=== PATIENT | male | born 1980 | race Caucasian/White ===

== ENCOUNTER 2023-07-06 17:02 | Inpatient (IN) | payer OTHER ==
--- OUTSIDE RECORDS SUMMARY | 2023-07-06 17:05 | XMS REPORT | Continuity of Care Document ---
:1980 Author Organization [facility] t Address [address] [facility]. [address] [place] [address] Care Team Providers Name Role Phone PCP, PATIENT DOES NOT HAVE A Primary Care Physician Unavaila Monique Jones MD Attending Clinician MONIQUE ZIMMER Attending Clinician Unavailable MONIQUE ZIMMER Admitting Clinician Unavailable Payers Payer Name Policy Type Policy Number Effective Date Expiration Date S ource Problems This patient has no known problems. Allergies, Adverse Reactions, Alerts Allergy Allergy Status Severity Reaction(s) Onset Inactive Treating Comm ents Source Name Type Date Date Clinician Penicill Propensi Active Itching 2022-0 Unive rs ins ty to 7-24 ity of adverse 00:00: [place] reaction 00 Medical s Branch Tetanus Propensi Active Anaphylaxis 2022-0 Un katia And ty to 7-24 ity of Diphther adverse 00:00: [place] . Tox reaction 00 Medical (Pf) s Branch PENICILL Drug Active ITCHING 2022-0 Univers INS Class 7-24 ity of 00:00: [place] 00 Medical Branch TETANUS DRUG Active Anaphylaxis 2022-0 Univ ers AND 7-24 ity of DIPHTHER 00:00: [place] . TOX 00 Medical (PF) Branch NO KNOWN Drug Active Univers ALLERGIE Class ity of [place] [facility] [place] Social History Social Habit Start Date Stop Date Quantity Comments Source Gender identity Universit y [facility] Medical [place] Sexual orientation Univer [facility] Medical [place] Sex Assigned At [birth year] [facility] [place] 00:00:00 00:00:00 Medical Branch Smoking Status Start Date Stop Date Source Tobacco [facility] consumption [facility] Medications Ordered Filled Start Stop Current Ordering Indication Dosage Frequency Signature Comments Components Source Medication Medication Date Date Medication? Clinician (SIG) Name Name HYDROcodone 2022- No 1{tbl} 1 tablet, Univers -acetaminop 06-15 Oral, ity of hen (NORCO 04:00: 03:58 ONCE, 1 [place] as 5) 5-325 mg 00 :00 dose, On Medi beck tablet 1 Wed Branch tablet 06/14/23 at 2300, JOSE levoFLOXaci 2022- No 500mg 500 mg, U nivers n 06-15 Oral, ity of (LEVAQUIN) 03:45: 03:41 ONCE, 1 Dusty as tablet 500 00 :00 dose, On Medic al mg Wed Branch 06/14/23 at 2245, JOSE
Re ason for Anti-Infec tive: Documented Infection< br>Documen everett Infection Site: Urine
D uration of Therapy: Other (see Comments) ketorolac No 30mg 30 mg, Unive rs (TORADOL) 06-15 Slow IV ity of injection 03:00: 02:58 Push, [place] 30 mg 00 :00 ONCE, 1 Medical dose, On Branch 06/14/23 at 2200, Routine tamsulosin Yes [id number] .4mg Take 1 Univers 0.4 mg 24 7-24 capsule by ity of hr capsule 00:00: mouth at Dust[place] as 00 bedtime. Medical Branch levoFLOXaci 0 Yes [id number] 500mg Take 1 Univers n 7-24 tablet by ity of (LEVAQUIN) 00:00: mouth [place] 500 mg 00 every 24 Medical tablet (twenty-fo Branch ur) hours. traMADoL 0 Yes [id number] 50mg Take 1 Univers (ULTRAM) 50 7-24 tablet by ity of mg tablet 00:00: mouth [place] 00 every 6 Medical (six) Branch hours as needed for Pain (scale 7-10). Indication s: acute pain phenazopyri 2022- Yes [id number] 200mg Take 1 Univers dine 200 mg 06-14- tablet by it y of tablet 00:00: 04:59 mouth in [place] 00 :00 the Medical morning Branch and 1 tablet at noon and 1 tablet in the evening. Do all this for 3 days. Vital Signs Vital Name Observation Time Observation Value Comments Source Systolic blood 2023-06-15 03:24:00 140 mm[Hg] Univer sit of pressure [facility] Diastolic blood 2023-06-15 03:24:00 103 mm[Hg] [facility] Heart rate 2023-06-15 03:24:00 73 /min [facility] Respiratory rate 2023-06-15 03:24:00 23 /min [facility] Oxygen saturation in 2023-06-15 03:24:00 98 /min [facility] Arterial blood by [facility] Pulse oximetry Branch Body temperature 2023-06-15 01:18:00 36.72 Riya [facility] Body height 2023-06-15 01:18:00 177.8 cm [facility] Body weight 2023-06-15 01:18:00 77.111 kg [facility] BMI 2023-06-15 01:18:00 24.39 kg/m2 [facility] Procedures Procedure Date / Time Performed Performing Clinician Liu del rosario CT ABDOMEN PELVIS WO 2023-06-15 02:42:[address] [facility] CONTRAST [facility] BASIC METABOLIC PANEL 2023-06-15 02:10:00 Monique Zimmer [facility] (NA, K, CL, CO2, Medical Branch GLUCOSE, BUN, CREATININE, CA) CBC WITH DIFF 2023-06-15 02:10:00 Monique Zimmer [facility] URINALYSIS 2023-06-15 02:10:00 Monique Zimmer [facility] NOTICE OF PRIVACY 2023-06-15 01:05:46 Doctor Unassigned, No Univ [facility] Name Medical Branch CONSENT/REFUSAL FOR 2023-06-15 01:05:17 [facility] Name Medical Branch TREATMENT Encounters Start End Encounter Admission Attending Care Care Encounter Source Date/Time Date/Time Type Type Clinicians Facility Department ID 2023-06-14 2023-06-[address] [facility] [id number] [facility] 20:21:00 23:08:00 [id number] [id number] [place] [id number] Branch 2023-06-14 2023-06-14 Emergency X DREA ZIMMER ERT [id number] [facility] 20:21:00 23:08:00 [facility] Results Test Description Test Time Test Comments Results Result Comments Source BASIC METABOLIC PANEL (NA, K, CL, CO2, GLUCOSE, BUN, 2023-05 02:52:51 CREATININE, CA) Test Item Value Reference Range Interpretation Comme nts NA (test code = 5442428357) 144 mmol/L 135-145 K (test code = 5111852184) 3.7 mmol/L 3.5-5.0 CL (test code = 2226463096) 109 mmol/L 98-108 H CO2 TOTAL (test code = 3876173192) 21 mmol/L 23-31 L AGAP (test code = 3280869495) 14 2-16 BUN (test code = 8985517633) 12 mg/dL 7-23 GLUCOSE (test code = 3253517963) 112 mg/dL 70-110 H CREATININE (test code = 1.08 mg/dL 0.60-1.25 1252080452) CALCIUM (test code = 1325033025) 8.8 mg/dL 8.6-10.6 eGFR (test code = 9549532220) 75.0 mL/min/1.73m2 AYUSH (test code = AYUSH) Association of Glomerular Filtration Rate (GFR) and Staging of Kidney Disease* + +-------- + ------+| GFR (mL/min/1.73 m2) ?| With Kidney Damage ?| ?Without Kidney Damage+ +-- + +| ?>90 ?| ?Stage one ?| ? Normal ?+ +------- + -------+| ?60-89 ?| ?Stage two ?| ? Decreased GFR ? + +-------- + ------+| ?30-59 ?| ?Stage three ?| ? Stage three ? + +-------- + ------+| ?15-29 ?| ?Stage four ? | ? Stage four ?+ +------- + -------+| ?<15 (or dialysis) ? ?| ?Stage five ? | ? Stage five ?+ +------- + -------+ *Each stage assumes the associated GFR level has been in effect for at least three months. ?Stages 1 to 5, with or without kidney disease, indicate chronic kidney disease. Notes: Determination of stages one and two (with eGFR >59mL/min/1.73 m2) requires estimation of kidney damage for at least three months as defined by structural or functional abnormalities of the kidney, manifested by either:Pathological abnormalities or Markers of kidney damage (including abnormalities in the composition of the blood or urine or abnormalities in imaging tests). Lab Interpretation (test code = Abnormal 99399-1) [facility] WITH [id number] 02:41:34 Test Item Value Reference Range Interpretation Comments WBC (test code = 13.38 See_Comment H [Automated 2542-2) message] The sy stem which generated this result transmitted reference range : 4.20 - 10.70 10*3/?L. The reference range was not used to interpret this result as normal/abnormal . RBC (test code = 4.83 See_Comment [Automated 842-8) message] The sy stem which generated this result transmitted reference range : 4.26 - 5.52 10*6/?L. The reference range was not used to interpret this result as normal/abnormal . HGB (test code = 14.9 g/dL 12.2-16.4 718-7) HCT (test code = 41.6 % 38.4-49.3 4544-3) MCV (test code = 86.1 fL 81.7-95.6 787-2) MCH (test code = 30.8 pg 26.1-32.7 785-6) MCHC (test code = 35.8 g/dL 31.2-35.0 H 786-4) RDW-SD (test code = 40.7 fL 38.5-51.6 76890-4) RDW-CV (test code = 13.1 % 12.1-15.4 788-0) PLT (test code = 208 See_Comment [Automated 996-3) message] The sy stem which generated this result transmitted reference range : 150 - 328 10*3/ ?L. The reference r dayan was not used to interpret this result as normal/abnormal . MPV (test code = 11.4 fL 9.8-13.0 09943-3) NRBC/100 WBC (test 0.0 See_Comment [Automat ed code = 1679183568) message] The system which generated this result transmitted reference range : 0.0 - 10.0 /100 WBCs. The refer ence range was not u sed to interpret th is result as normal/abnormal . NRBC x10^3 (test code See_Comment [Auto mated = 4090879192) message] The s ystem which generated this result transmitted reference range : 10*3/?L. The reference range was not used to interpret this result as normal/abnormal . GRAN MAT (NEUT) % 64.2 % (test code = 770-8) IMM GRAN % (test code 0.20 % = 3820762895) LYMPH % (test code = 23.5 % 736-9) MONO % (test code = 7.4 % 5905-5) EOS % (test code = 3.7 % 713-8) BASO % (test code = 1.0 % 706-2) GRAN MAT x10^3(ANC) 8.60 10*3/uL 1.99-6.95 H (test code = 2715118714) IMM GRAN x10^3 (test 0.03 10*3/uL 0.00-0.06 code = 7491882461) LYMPH x10^3 (test code 3.14 10*3/uL 1.09-3.23 = 731-0) MONO x10^3 (test code 0.99 10*3/uL 0.36-1.02 = 742-7) EOS x10^3 (test code = 0.49 10*3/uL 0.06-0.53 711-2) BASO x10^3 (test code 0.13 10*3/uL 0.01-0.09 H = 704-7) Lab Interpretation Abnormal (test code = 05127-2) [facility] Notes Date/Time Note Provider Source 2023-06-14 Formatting of this note might be differe nt from the original. Davina Gannon RN [facility] 23:07:04-00:00 Pt given printed and verbal discharge instructions regarding acute cystitis without hematuria, right flank pain, enlarged prostate, elevated blood pressure reading without diagnosis of hypertension, encouraged hydration, 4 Prescriptions provided Discussed antibiotic therapy and to take until all completed unless adverse reaction occurs - if occurs, discontinue medication and follow up with pcp/seek medical attention Discussed tramadol side affe cts and to avoid driving/operating machinery/or engaging in activities requiring alertness while taking. Pt verbalized understanding of instructions, pt awake alert oriented, resp reg unlabored, skin w/d, color appropriate for race, moves all ext well,pt encouraged to follow up with pcp and urologist. Advised to seek medical attention for new/prolon ged/worsening of symptoms, Symptoms improved. No adverse reaction to meds given in ER noted up on discharge PIV d'cd, dressing to site, catheter in tact. Awake, alert oriented, resp reg unlabored, skin w/d, pt leaving amb with steady gait, in no apparent distress, Electronically signed by Davina Gannon RN a t 06/14/2023 11:08 PM CDT 2023-06-14 [facility] 20:17:19-00:00 C/O RLQ pain that radiates t o the right flank and, right mid back X3. Pt states that he has been have more difficulty urinating Electronically signed by Serena Sagastume RN at 0 06/14/2023 8:18 PM CDT"
[2023-07-06 18:05] LABS: Absolute Lymphocytes (CBC) 3.1 K/uL (0.7-4.9); Hematocrit 43.4 % (39.6-49.0); Lymphocytes % 23.9 % (15.3-44.8); MCV 89.8 fL (80-100); MPV 9.3 fL (7.6-11.3); Platelets 206 thou/uL (152-406); RBC Red Blood Cell Count 4.83 M/uL (4.33-5.43)
[2023-07-06 18:15] LABS: Potassium 3.1 mEq/L (3.5-5.1)
[2023-07-06 18:26] LABS: Troponin High Sensitivity 69.9 pg/mL (<58.9)
--- NOTE | 2023-07-06 19:28 | ER ---
Nurse's Notes [facility] [place] Name: Jose Vance Jr Age: 42 yrs Sex: Male : 1980 Arrival Date: 07/06/2023 Time: 17:02 Bed 20 Private MD: Diagnosis: Hypertensive emergency;Chest pain, unspecified-elevated troponin Presentation: 07/06 17:08 Chief complaint: Patient states: he was sent by the dentist for high blood pressure, ap3 and the dentist was unable to due his procedure due to the patients blood pressure. Coronavirus screen: At this time, the client does not indicate any symptoms associated with coronavirus-19. Ebola Screen: No symptoms or risks identified at this time. Initial Sepsis Screen: Does the patient meet any 2 criteria? No. Patient's initial sepsis screen is negative. Does the patient have a suspected source of infection? No. Patient's initial sepsis screen is negative. Risk Assessment: Do you want to hurt yourself or someone else? Patient reports no desire to harm self or others. Onset of symptoms was July 06, 2023. 17:08 Method Of Arrival: Ambulatory ap3 17:08 Acuity: HIEU 2 ap3 Triage Assessment: 17:11 General: Appears in no apparent distress. Behavior is calm, cooperative, appropriate ap3 for age. Pain: Complains of pain in mouth. Neuro: Level of Consciousness is awake, alert, obeys commands, Oriented to person, place, time, situation. Cardiovascular: Patient's skin is warm and dry. Respiratory: Airway is patent Respiratory effort is even, unlabored, Respiratory pattern is regular, symmetrical. Historical: - Allergies: 17:10 PENICILLINS; ap3 - Home Meds: 17:10 None [Active]; ap3 - PMHx: 17:10 None; ap3 - Immunization history:: Client reports having NOT received the Covid vaccine. - Social history:: Smoking status: Patient reports the use of cigarette tobacco products, denies chronic smoking, but will smoke occasionally. Screenin:11 [facility] ED Fall Risk Assessment (Adult) History of falling in the last 3 months, ap3 including since admission No falls in past 3 months (0 pts). Abuse screen: Denies threats or abuse. Nutritional screening: No deficits noted. Tuberculosis screening: No symptoms or risk factors identified. Assessment: 17:15 General: Appears comfortable, Behavior is calm, cooperative. Pain: Complains of pain in aa5 mouth. Neuro: Level of Consciousness is awake, alert, obeys commands, Oriented to person, place, time, situation, Denies dizziness, headache. Cardiovascular: Heart tones S1 S2 present Rhythm is regular. Respiratory: Airway is patent Respiratory effort is even, unlabored, Respiratory pattern is regular, symmetrical. GI: Patient currently denies nausea, vomiting. : No signs and/or symptoms were reported regarding the genitourinary system. EENT: Reports toothache, pt states "I was at the dentist to get a crown done but they weren't able to do it because my blood pressure was high, it was around 179 (systolic) and it just kept getting higher and higher". . Derm: Skin is pink, warm \\T\\ dry. Musculoskeletal: Range of motion: intact in all extremities. 17:40 Reassessment: Patient is alert, oriented x 3, equal unlabored respirations, skin aa5 warm/dry/pink. 18:21 Reassessment: Patient is alert, oriented x 3, equal unlabored respirations, skin aa5 warm/dry/pink. 19:32 General: Appears in no apparent distress. Behavior is cooperative. Cardiovascular: kl Rhythm is sinus rhythm. Respiratory: No deficits noted. GI: No deficits noted. No signs and/or symptoms were reported involving the gastrointestinal system. : No deficits noted. No signs and/or symptoms were reported regarding the genitourinary system. 07/07 17:25 Reassessment: attempted to call report to 2nd floor. no answer at this time. kc6 17:36 Reassessment: attempted to call report to 2nd floor. nurse lb is putting in a pathak kc6 catheter and will call me back in 10min. Vital Signs: 07/06 17:08 BP 204 / 115; Pulse 62; Resp 17; Temp 97.6; Pulse Ox 100% ; Weight 81.65 kg; Height 5 ap3 ft. 10 in. ; 17:52 BP 166 / 119; Pulse 72; Resp 18 S; Pulse Ox 100% on R/A; Pain 0/10; aa5 18:21 BP 157 / 114; Pulse 64; Resp 16 S; Pulse Ox 100% on R/A; aa5 19:33 BP 180 / 130; Pulse 61; Resp 16; Pulse Ox 98% on R/A; kl 17:08 Body Mass Index 25.83 (81.65 kg, 177.8 cm) ap3 17:52 Pain Scale: Adult aa5 ED Course: 17:03 Patient arrived in ED. kj1 17:05 [facility] kb 17:05 Rui Anderson DO is Attending Physician. kb 17:10 Triage completed. ap3 17:11 Arm band placed on right wrist. ap3 17:15 Patient has correct armband on for positive identification. Bed in low position. Call aa5 light in reach. Side rails up X 1. Pulse ox on. NIBP on. 17:36 Sandra Kamara RN is Primary Nurse. aa5 17:40 Initial lab(s) drawn, by me, sent to lab. Inserted saline lock: 20 gauge in right aa5 forearm, using aseptic technique. Blood collected. 18:05 No provider procedures requiring assistance completed. aa5 19:09 Report given to THOMAS Wang. aa5 19:26 Rui Anderson DO is Hospitalizing Provider. kb 19:27 Mark Paige MD is Hospitalizing Provider. kb 19:31 Troponin High Sensitivity Sent. kl 19:36 BNP Sent. kl 23:19 Patient admitted, IV remains in place. kl Administered Medications: 19:26 Drug: Norvasc PO 5 mg Route: PO; 07/07 05:32 Follow up: Response: No adverse reaction jw7 07/06 19:31 Drug: hydrALAZINE IVP 10 mg Route: IVP; Site: right antecubital; 07/07 05:32 Follow up: Response: No adverse reaction jw7 07/06 19:59 Drug: Potassium Chloride PO 40 mEq Route: PO; jw7 21:13 Follow up: Response: No adverse reaction jw7 20:06 Drug: Acetaminophen PO 1000 mg Route: PO; jw7 21:13 Follow up: Response: No adverse reaction; No change in condition jw7 20:06 CANCELLED (Duplicate Order): Acetaminophen PO 1000 mg PO once jw7 Medication: 23:19 VIS not applicable for this client. Outcome: 19:27 Decision to Hospitalize by Provider. kb 20:45 Admitted to ER Hold. Please see [facility] for further documentation. 20:45 Condition: stable 20:45 Discharge instructions given to patient, family, Instructed on the need for admit, Demonstrated understanding of instructions. 07/07 18:27 Patient left the ED. kc6 Signatures: Joana Winters FNP-C FNP-aDvina Foss RN Sandra Gray RN RN aa5 Jana Novak RN RN ap3 Juana Winters Jodi, RN RN jw7 Ebony Goetz RN RN kc6 Corrections: (The following items were deleted from the chart) 07/06 18:10 17:15 Neuro: Level of Consciousness is awake, alert, obeys commands, Oriented to aa5 person, place, time, situation, aa5
--- NOTE | 2023-07-06 19:28 | EDPHYS ---
Physician Documentation [facility] Name: Jose Vance Jr Age: 42 yrs Sex: Male : 1980 Arrival Date: 07/06/2023 Time: 17:02 Bed 20 Private MD: ED Physician Rui Anderson HPI: 07/06 21:16 This 42 yrs old Male presents to ER via Ambulatory with complaints of High Blood kb Pressure. 21:16 The patient has elevated blood pressure and discovered this at a physician's office, kb and sent to the emergency department for evaluation. Onset: The symptoms/episode began/occurred just prior to arrival. Associated signs and symptoms: The patient has no apparent associated signs or symptoms. The patient has not experienced similar symptoms in the past. The patient has not recently seen a physician. Pt reports he was at the dentist for a procedure and they said his blood pressure was too high so he needed to come here for evaluation. Denies history of hypertension. Denies headache, dizziness, chest pain. Historical: - Allergies: 17:10 PENICILLINS; ap3 - Home Meds: 17:10 None [Active]; ap3 - PMHx: 17:10 None; ap3 - Immunization history:: Client reports having NOT received the Covid vaccine. - Social history:: Smoking status: Patient reports the use of cigarette tobacco products, denies chronic smoking, but will smoke occasionally. ROS: 21:14 Constitutional: Negative for fever, chills, and weight loss. kb 21:14 All other systems are negative. Exam: 21:14 Constitutional: This is a well developed, well nourished patient who is awake, alert, kb and in no acute distress. Head/Face: Normocephalic, atraumatic. ENT: Moist Mucous membranes Cardiovascular: Regular rate and rhythm with a normal S1 and S2. No gallops, murmurs, or rubs. No pulse deficits. Respiratory: Respirations even and unlabored. No increased work of breathing. Talking in full sentences Abdomen/GI: Soft, non-tender. No distention Skin: Warm, dry with normal turgor. Normal color. MS/ Extremity: Pulses equal, no cyanosis. Neurovascular intact. Full, normal range of motion. Neuro: Awake and alert, GCS 15, oriented to person, place, time, and situation. Moves all extremities. Normal gait. Vital Signs: 17:08 BP 204 / 115; Pulse 62; Resp 17; Temp 97.6; Pulse Ox 100% ; Weight 81.65 kg; Height 5 ap3 ft. 10 in. ; 17:52 BP 166 / 119; Pulse 72; Resp 18 S; Pulse Ox 100% on R/A; Pain 0/10; aa5 18:21 BP 157 / 114; Pulse 64; Resp 16 S; Pulse Ox 100% on R/A; aa5 19:33 BP 180 / 130; Pulse 61; Resp 16; Pulse Ox 98% on R/A; kl 17:08 Body Mass Index 25.83 (81.65 kg, 177.8 cm) ap3 17:52 Pain Scale: Adult aa5 MDM: 17:05 Patient medically screened. kb 18:58 Data reviewed: vital signs, nurses notes. Consideration of Admission/Observation kb Escalation of care including admission/observation considered. admission considered for elevated troponin. Pt does not want to be admitted. Pt educated on risks and states he has no chest pain and feels fine so he wants to go home. . 19:20 ED course: Pt now reports he did have chest pressure earlier today, but thought it was kb stress. Agrees to admission now. 21:14 Differential diagnosis: hypertensive crisis, CVA, intracerebral hemorrhage, OR, kb abnormal EKG. Management of patient was discussed with the following: Hospitalist: tonja Vital accepts pt for admission. Counseling: I had a detailed discussion with the patient and/or guardian regarding: the historical points, exam findings, and any diagnostic results supporting the discharge/admit diagnosis, lab results, radiology results, the need for further work-up and treatment in the hospital. 07/06 17:14 Order name: CBC with Diff; Complete Time: 18:17 kb 07/06 17:14 Order name: Basic Metabolic Panel; Complete Time: 18:29 kb 07/06 17:14 Order name: Troponin High Sensitivity; Complete Time: 18:29 kb 07/06 18:59 Order name: Troponin High Sensitivity; Complete Time: 20:08 kb 07/06 19:26 Order name: BNP; Complete Time: 19:59 la1 07/07 00:29 Order name: Troponin High Sensitivity; Complete Time: 01:02 EDMS 07/07 05:22 Order name: CBC with Automated Diff; Complete Time: 15:58 EDMS 07/07 05:40 Order name: Basic Metabolic Panel; Complete Time: 15:58 EDMS 07/07 05:40 Order name: Troponin High Sensitivity; Complete Time: 15:58 EDMS 07/07 05:40 Order name: Lipid Profile; Complete Time: 15:58 EDMS 16 05:40 Order name: T4 Free; Complete Time: 15:58 EDMS 16 05:40 Order name: Thyroid Stimulating Hormone; Complete Time: 15:58 EDMS 07/06 19:26 Order name: Chest Single View XRAY la1 07/06 21:31 Order name: RAD; Complete Time: 21:32 EDMS 07/07 07:48 Order name: CT; Complete Time: 15:58 EDMS 07/06 17:14 Order name: EKG; Complete Time: 17:15 kb 07/06 17:14 Order name: EKG - Nurse/Tech; Complete Time: 17:52 kb Administered Medications: 19:26 Drug: Norvasc PO 5 mg Route: PO; 07/07 05:32 Follow up: Response: No adverse reaction jw7 07/06 19:31 Drug: hydrALAZINE IVP 10 mg Route: IVP; Site: right antecubital; 07/07 05:32 Follow up: Response: No adverse reaction jw7 07/06 19:59 Drug: Potassium Chloride PO 40 mEq Route: PO; jw7 21:13 Follow up: Response: No adverse reaction jw7 20:06 Drug: Acetaminophen PO 1000 mg Route: PO; jw7 21:13 Follow up: Response: No adverse reaction; No change in condition jw7 20:06 CANCELLED (Duplicate Order): Acetaminophen PO 1000 mg PO once jw7 Disposition: 20:46 Co-signature as Attending Physician, Rui RUSHING was immediately available on-site ms3 in the Emergency Department for consultation in the care of the patient. Disposition Summary: 07/06/23 19:27 Hospitalization Ordered Hospitalization Status: Observation kb Provider: Mark Paige Condition: Stable kb Problem: new kb Symptoms: are unchanged kb Bed/Room Type: Standard kb Location: Telemetry/MedSurg (observation)(07/07/23 17:16) bd Room Assignment: 228(07/07/23 17:16) bd Diagnosis - Hypertensive emergency kb - Chest pain, unspecified - elevated troponin kb Forms: - Medication Reconciliation Form kb - SBAR form kb - Leadership Thank You Letter kb Signatures: Dispatcher [employer] EDJoana Grayson, HOME STEREO EQUIPMENT INSTALLER-C HOME STEREO EQUIPMENT INSTALLER-Ckb Abena Barth Kimberly, RN RN Amanuel Royal FNP-C HOME STEREO EQUIPMENT INSTALLER-Nelli1 Jana Novak RN RN ap3 Tami Lindsay RN THOMAS eb1 Rui Anderson DO DO ms3 Nicole Pérez, RN RN jw7 Corrections: (The following items were deleted from the chart) 20:06 20:03 Acetaminophen PO 1000 mg PO once ordered. joan jw7 21:22 21:16 Pt reports he was at the dentist for a procedure and they said his blood pressure kb was too high so he needed to come here for evaluation. Denies history of hypertension. kb 22:21 19:27 Telemetry/MedSurg (observation) kb eb1 22:21 19:27 kb eb1 07/07 17:16 07/06 22:21 [facility] ER HOLD eb1 bd 07/07 17:16 08 22:21 ERHOLD- eb1 bd
[2023-07-06] MEDS ORDERED: AMLODIPINE 5 MG TAB ONE (19:33)
[2023-07-06] MEDS ORDERED: HYDRALAZINE HCL 20 MG/ML VIAL ONE (19:38)
[2023-07-06] MEDS ORDERED: POTASSIUM CL SA 10 MEQ TAB PO ONE (20:07)
[2023-07-06] MEDS ORDERED: ACETAMINOPHEN 500 MG TAB ONE (20:14)
--- NOTE | 2023-07-06 20:16 | P.HP ---
Certification for Inpatient Patient admitted to: Inpatient With expected LOS: >2 Midnights Patient will require the following post-hospital care: None Practitioner: I am a practitioner with admitting privileges, knowledge of patient current condition, hospital course, and medical plan of care. Services: Services provided to patient in accordance with Admission requirements found in Title 42 Section 412.3 of the Code of Federal Regulations Patient History Date of Service: 07/06/23 Reason for admission: Hypertensive emergency, NSTEMI History of Present Illness: Otherwise healthy 42-year-old male went to his dentist today for dental pain and they were making plans for a root canal, they noticed his blood pressure was markedly elevated and for that reason he was referred to the emergency department. His blood pressures have been as high as 204/115. He is not sure when the last time he checked his blood pressure was prior to this. His labs were significant for high sensitive troponin 69.9 potassium 3.1 chest x-ray negative for acute findings EKG without STEMI criteria. He was given aspirin, potassium ED. ED provider wishes to admit for hypertensive emergency. I - Past Medical/Surgical History -: none -: none Psychosocial/ Personal History: Patient lives at home with family - Family History Family History: Reviewed- Non-Contributory - Social History Smoking Status: Current every day smoker Alcohol use: No CD- Drugs: No Caffeine use: Yes Place of Residence: Home Review of Systems Unremarkable Physical Examination - Physical Exam General: Alert, In no apparent distress, Oriented x3 HEENT: Atraumatic, PERRLA, Mucous membr. moist/pink, EOMI, Sclerae nonicteric Neck: Supple, 2+ carotid pulse no bruit, No LAD, Without JVD or thyroid abnormality Respiratory: Clear to auscultation bilaterally, Normal air movement Cardiovascular: Regular rate/rhythm, Normal S1 S2 Gastrointestinal: Normal bowel sounds, No tenderness Musculoskeletal: No tenderness Integumentary: No rashes Neurological: Normal gait, Normal speech, Normal strength at 5/5 x4 extr, Normal tone, Normal affect Lymphatics: No axilla or inguinal lymphadenopathy - Studies Laboratory Data (last 24 hrs) 07/06/23 07/06/23 17:44 17:44 WBC 13.00 H Hgb 14.3 Hct 43.4 Plt Count 206 Sodium 140 Potassium 3.1 L BUN 13 Creatinine 1.01 Glucose 102 Assessment and Plan - Plan Assessment: Hypertensive emergency, NSTEMI Hypokalemia Plan: Hypertensive emergency, NSTEMI Trend troponin, monitor on telemetry, obtain echocardiogram, initiate antihypertensive therapy, will start with lisinopril. Denies chest pain. EKG without STEMI criteria. Hypokalemia Replaced in ED, protocol in place. DVT PPX:lovenox Code status:Full Discharge Plan: Home Plan to discharge in: 48 Hours - Advance Directives Does patient have a Living Will: No Does patient have a Durable POA for Healthcare: No - Code Status/Comfort Care Code Status Assessed: Yes (Full code) Critical Care: No Time Spent Managing Pts Care (In Minutes): 55
--- NOTE | 2023-07-06 21:31 | RAD REPORT ---
EXAM DESCRIPTION: Nessa Single View07/06/2023 8:11 pm CLINICAL HISTORY: CHEST PAIN COMPARISON: No comparisons TECHNIQUE: Portable AP view of the chest. FINDINGS: The lungs are clear. No pneumothorax or effusion. The cardiomediastinal contours are unrem arkable. IMPRESSION: No acute cardiopulmonary process.
[2023-07-06 21:45] VITALS: O2SAT 100; BMI 25.8
[2023-07-06] MEDS ORDERED: MORPHINE 2 MG/ML SYR IV ONE (22:39)
[2023-07-06] MEDS ORDERED: MORPHINE 2 MG/ML SYR ONE (22:55)
[2023-07-07] MEDS: ACETAMINOPHEN 500 MG TAB PO PRN ×2 (01:51→19:51)
[2023-07-07] MEDS: ONDANSETRON 4 MG/2 ML VIAL IV PRN ×2 (01:52→08:36)
[2023-07-07] MEDS ORDERED: ONDANSETRON 4 MG/2 ML VIAL ONE ×2 (01:53→08:37)
[2023-07-07] MEDS ORDERED: ACETAMINOPHEN 500 MG TAB ONE (01:53)
[2023-07-07] MEDS: HYDROCODONE/APAP 7.5/325 MG TAB PO PRN ×4 (03:27→23:14)
[2023-07-07] MEDS ORDERED: HYDROCODONE/APAP 7.5/325 MG TAB ONE ×3 (03:35→15:58)
[2023-07-07] MEDS: HYDRALAZINE HCL 20 MG/ML VIAL IV PRN ×2 (04:17→09:45)
[2023-07-07] MEDS ORDERED: HYDRALAZINE HCL 20 MG/ML VIAL ONE ×2 (04:19→08:37)
[2023-07-07 05:13] LABS: Absolute Lymphocytes (CBC) 3.1 K/uL (0.7-4.9); Hematocrit 40.5 % (39.6-49.0); Lymphocytes % 30.7 % (15.3-44.8); MCV 89.8 fL (80-100); MPV 9.3 fL (7.6-11.3); Platelets 210 thou/uL (152-406); RBC Red Blood Cell Count 4.51 M/uL (4.33-5.43)
[2023-07-07 05:34] LABS: Potassium 3.4 mEq/L (3.5-5.1); Thyroid Stimulating Hormone 2.4 uIU/mL (0.358-3.740)
[2023-07-07 05:39] LABS: Troponin High Sensitivity 79.3 pg/mL (<58.9)
[2023-07-07] MEDS ORDERED: KETOROLAC 30 MG/ML INJ IV ONE ×2 (06:26→21:02)
[2023-07-07] MEDS ORDERED: KETOROLAC 30 MG/ML INJ ONE (06:38)
--- NOTE | 2023-07-07 07:47 | RAD REPORT ---
EXAM DESCRIPTION: CT - Head Brain Wo Cont - 07/07/2023 7:01 am CLINICAL HISTORY: headache COMPARISON: No comparisons TECHNIQUE: Noncontrast head CT images were obtained without IV contrast. Multiplanar reformats were generated and reviewed. All CT scans are performed using dose optimization technique as appropriate and may include automated exposure control or mA/KV adjustment according to patient size. FINDINGS: No intracranial hemorrhage, mass, or edema. Midline structures are unremarkable. Normal ventricular caliber for age. Calle-white matter differentiation is preserved, without evidence of acute infarct. No abnormal extra- axial fluid collections. Mastoid air cells and visualized portions of the paranasal sinuses are clear. No acute bony findings. IMPRESSION: No evidence of an acute intracranial process.
[2023-07-07] MEDS ORDERED: ASPIRIN EC 81 MG TAB PO ONE (08:37)
[2023-07-07] MEDS ORDERED: ENOXAPARIN 40 MG/0.4 ML SQ ONE (08:37)
[2023-07-07] MEDS ORDERED: lisinopriL 10 MG TAB ONE (08:37)
[2023-07-07] MEDS ORDERED: ASPIRIN EC 81 MG TAB PO SCH (09:00)
[2023-07-07] MEDS ORDERED: ENOXAPARIN 40 MG/0.4 ML SQ SCH (09:00)
[2023-07-07] MEDS ORDERED: lisinopriL 10 MG TAB PO SCH (09:00)
[2023-07-07] MEDS ORDERED: MORPHINE 2 MG/ML SYR IV ONE (11:20)
[2023-07-07] MEDS ORDERED: MORPHINE 2 MG/ML SYR ONE (11:43)
--- NOTE | 2023-07-07 15:29 | P.PN ---
Subjective Date of Service: 07/07/23 Chief Complaint: Hypertensive emergency, NSTEMI No acute events overnight. He denies any prior medical history. He states that he has not checked his blood pressure before, so he does not know if he has a history of hypertension. Currently, he is reporting generalized tension headache s. He denies any chest pain, palpitations, or shortness of breath. Review of Systems 10-point ROS is otherwise unremarkable Neurological: Other (headaches) Physical Examination - Vital Signs Temperature: 97.7 F Blood Pressure: 133/94 Pulse: 73 Respirations: 14 Pulse Ox (%): 99 - Physical Exam General: Alert, In no apparent distress, Oriented x3 HEENT: Atraumatic, Mucous membr. moist/pink, Sclerae nonicteric Respiratory: Clear to auscultation bilaterally, Normal air movement Cardiovascular: No edema, Regular rate/rhythm, Normal S1 S2, No gallops, No rubs, No murmurs Gastrointestinal: Normal bowel sounds, Soft and benign, Non-distended, No tenderness, No rebound, No guarding Musculoskeletal: No clubbing Integumentary: No rashes Neurological: Normal speech, Normal affect - Studies Laboratory Data (last 24 hrs) 07/06/23 07/06/23 17:44 17:44 WBC 13.00 H Hgb 14.3 Hct 43.4 Plt Count 206 Sodium 140 Potassium 3.1 L BUN 13 Creatinine 1.01 Glucose 102 Assessment And Plan - Plan # Hypertensive Emergency with suspected Demand Ischemia (Type II Non-ST Segment Elevation Myocardial Infarction) Blood pressure was 204/115. He reports a headache; however, he denies any chest pain, palpitations, or shortness of breath. - Evaluation thus far: - EKG without STEMI criteria - Serial troponin: 69.9 -> 67.0 -> 75.9 -> 79.3 - Chest x-ray = "no acute cardiopulmonary process." - CT head = "no evidence of an acute intracranial process." - Ordered transthoracic echocardiogram - Management plan: - Consulted Cardiology - recommendations appreciated - Goal to reduce blood pressure ~20 % over the next 24 hours - Started lisinopril - PRN hydralazine for SBP > 170 mmHg Mark Paige M.D.
--- NOTE | 2023-07-07 18:28 | EKG ---
Test Date: 2023-07-06 Test Time: 17:47:43 [employer] Dis[employer] Analyst: DAVID MEASUREMENT RESULTS: Intervals: Rate: 63 UT: 138 QRSD: 86 QT: 434 QTc: 444 [place]: P: 63 UT: 138 QRS: 58 T: 29 INTERPRETIVE STATEMENTS: Normal sinus rhythm Minimal voltage criteria for LVH, may be normal variant Borderline ECG No previous ECG available for comparison Electronically Signed On 07-07-23 18:25:36 CDT by Erick Brice
[2023-07-08 02:55] LABS: Absolute Lymphocytes (CBC) 3.3 K/uL (0.7-4.9); Lymphocytes % 29.2 % (15.3-44.8); MCV 90.3 fL (80-100); MPV 9.9 fL (7.6-11.3); Platelets 208 thou/uL (152-406); RBC Red Blood Cell Count 4.65 M/uL (4.33-5.43)
[2023-07-08 03:10] LABS: Potassium 4.1 mEq/L (3.5-5.1)
[2023-07-08] MEDS: HYDROCODONE/APAP 7.5/325 MG TAB PO PRN (05:17)
--- NOTE | 2023-07-08 07:03 | ECHO ---
HEIGHT: 5 ft 10 in WEIGHT: 179 lb 14.355 oz DATE OF STUDY: 07/07/[address]: Amanuel Toledo NP 2-DIMENSIONAL: YES M.MODE: YES DOPPLER: YES COLOR FLOW: YES TDS: PORTABLE: YES DEFINITY: BUBBLE STUDY: DIAGNOSIS: ELEVATED TROPONIN CARDIAC HISTORY: CATHERIZATION: NO SURGERY: NO PROSTHETIC VALVE: NO PACEMAKER: NO MEASUREMENTS (cm) DIASTOLIC (NORMALS) SYSTOLIC (NORMALS) IVSd 1.0 (0.6-1.2) LA Diam 3.7 (1.9-4.0) LVEF 62% LVIDd 4.6 (3.5-5.7) LVIDs 3.1 (2.0-3.5) %FS 33% LVPWd 1.2 (0.6-1.2) Ao Diam 2.9 (2.0-3.7) 2 DIMENSIONAL ASSESSMENT: RIGHT ATRIUM: NORMAL LEFT ATRIUM: NORMAL RIGHT VENTRICLE: NORMAL LEFT VENTRICLE: NORMAL TRICUSPID VALVE: NORMAL MITRAL VALVE: NORMAL PULMONIC VALVE: NORMAL AORTIC VALVE: NORMAL PERICARDIAL EFFUSION: NONE AORTIC ROOT: NORMAL LEFT VENTRICULAR WALL MOTION: NORMAL DOPPLER/COLOR FLOW: NORMAL COMMENTS: 1. NORMAL LEFT VENTRICULAR EJECTION FRACTION 55-60% 2. NORMAL WALL MOTION 3. NORMAL DIASTOLIC FUNCTION TECHNOLOGIST: DONOVAN FENG
--- NOTE | 2023-07-08 07:54 | P.DS ---
Admission Date: 07/06/23 Discharge Date: 07/08/23 Disposition: ROUTINE DISCHARGE Discharge Condition: GOOD Reason for Admission: Hypertensive emergency, NSTEMI Consultations: 1. Cardiology Hospital Course: DIAGNOSES: # Hypertensive Emergency with suspected Demand Ischemia (Type II Non-ST Segment Elevation Myocardial Infarction) # Migraine Headaches HOSPITAL COURSE: Mr. Jose Vance is a 42 year old male with a past medical history of migraine headaches who was admitted to the [facility] on 07/06/2023 for hypertensive emergency with elevated troponin. He was admitted to the Medicine service. Upon further evaluation, his EKG was without STEMI criteria. His serial troponin were 69.9 -> 67.0 -> 75.9 -> 79.3. His chest x-ray revealed, "no acute cardiopulmonary process." His CT head revealed, "no evidence of an acute intracranial process." His transthoracic echocardiogram report was notable for a left ventricular ejection fraction of 55-60 %, normal wall motion, and normal diastolic dysfunction. He was started on lisinopril and PRN hydralazine. Over the course of his hospitalization, his blood pressure normalized and his symptoms subsided. Cardiology was consulted and he was evaluated by Dr. Brice. Dr. Brice has cleared him for discharge with an outpatient stress test. On 07/08/2023, he was seen on morning rounds and deemed medically stable for discharge. He was discharged with instructions to schedule follow-up appointments with his PCP and with Cardiology (Dr. Brice). He was provided a prescription for lisinopril. He was given the opportunity to ask questions and reported no further questions. Furthermore, all questions were answered to the best of my ability. A copy of this discharge summary will be sent to the above providers to facilitate continuity of care. Today, I personally spent 20 minutes on his case, of which greater than 50% of the time was spent in patient education, counseling, and coordination of care as described above. - Physical Exam General: Alert, In no apparent distress, Oriented x3 HEENT: Atraumatic, Mucous membr. moist/pink, Sclerae nonicteric Respiratory: Clear to auscultation bilaterally, Normal air movement Cardiovascular: No edema, Regular rate/rhythm, No murmurs Gastrointestinal: Normal bowel sounds, Soft, Non-distended, No tenderness Musculoskeletal: No clubbing Neurological: Normal speech, Normal affect Vital Signs/Physical Exam: Temp Pulse Resp BP Pulse Ox 97.9 F 65 17 125/71 98 07/08/23 04:00 07/08/23 04:00 07/08/23 06:17 07/08/23 04:00 07/08/23 06:17 Laboratory Data at Discharge: WBC 11.20 thou/uL (4.3-10.9) H 07/08/23 02:05 Hgb 13.9 g/dL (13.6-17.9) 07/08/23 02:05 Hct 42.0 % (39.6-49.0) 07/08/23 02:05 Plt Count 208 thou/uL (152-406) 07/08/23 02:05 Sodium 140 mEq/L (136-145) 07/08/23 02:05 Potassium 4.1 mEq/L (3.5-5.1) D 07/08/23 02:05 BUN 17 mg/dL (7-18) 07/08/23 02:05 Creatinine 0.95 mg/dL (0.70-1.30) 07/08/23 02:05 Glucose 111 mg/dL (74-106) H 07/08/23 02:05 Triglycerides 232 mg/dL (<150) H 07/07/23 04:46 Cholesterol 177 mg/dL (<200) 07/07/23 04:46 HDL Cholesterol 49 mg/dL (40-60) 07/07/23 04:46 Cholesterol/HDL Ratio 3.61 07/07/23 04:46 Home Medications: lisinopriL [Prinivil*] 10 mg PO DAILY #30 tab 07/08/23 New Medications: lisinopriL [Prinivil*] 10 mg PO DAILY #30 tab Physician Discharge Instructions: 1. Please call and schedule a follow-up appointment with your PCP in 3-5 days - You have been started on lisinopril. This medication can sometimes affect your potassium levels and kidney function. Please have your PCP check these labs at your upcoming visit 2. Please call and schedule a follow-up appointment with Cardiology (Dr. Brice) in 3-5 days - He will schedule you for a cardiac stress test in his office - As we discussed, please check your blood pressure twice daily and maintain a journal. Please bring this journal to your follow-up appointment - If the top number is less than 120, please hold that day's dose of lisinopril - Please have Dr. Brice refill and adjust your blood pressure medications as needed Diet: Low sodium Activity: Ad dom Followup: NONE,NONE [Primary Care Provider] - Erick Brice MD [ACTIVE - CAN ADMIT] - Time spent managing pt's care (in minutes): 20
[2023-07-08 08:58] VITALS: BP 156/90; TEMP 98.3
== END 2023-07-08 08:50 | disposition home or self-care (01) | DRG 282 ==
LOC: ER 17:02 → ERHOLD 19:52 → 2ND 07-07 18:04
PROVIDERS: ADMIT Internal Medicine; ATTEND Internal Medicine
DX: I16.1 Hypertensive emergency (principal); I21.A1 Myocardial infarction type 2; E87.6 Hypokalemia; G43.909 Migraine, unspecified, not intractable, without status migrainosus; F17.210 Nicotine dependence, cigarettes, uncomplicated; R77.8 Other specified abnormalities of plasma proteins; Z88.0 Allergy status to penicillin; Z28.310 Unvaccinated for COVID-19
CPT/HCPCS: 36415; 70450; 71045; 80048; 80061; 83880; 84439; 84443; 84484; 85025; 93005; 93306; 96374; 99285; J0360; J1650; J2270; J2405